=== PATIENT | female | born 1960 | race Caucasian/White ===

== ENCOUNTER 2019-12-23 10:24 | Emergency (ER) | payer BC ==
--- NOTE | 2019-12-23 10:52 | ED Physician Documentation ---
PD HPI Fall - Stated complaint Stated Complaint: ABD PX - Chief complaint Chief Complaint: General - History obtained from History obtained from: Patient - History of Present Illness Mechanism of injury: Tripped, Lost balance Fall distance: Standing position Where injury occurred: Home Timing - onset: How many weeks ago (1) Injury(ies) location: Abdomen, Left Lower Extremity (anterolateral thigh). No: Head, Neck, Chest, Back Associated symptoms: Abdominal distension (She is having swelling and tenderness locally in the left mid to upper abdomen with a localized lump and significant bruising through most of the abdominal wall down to the inguinal crease. She has a separate bruising in the left anterolateral thigh. She is continue with pain in the anterior abdomen to palpation and with movement. She does feel a fullness of her abdomen. She denies any pain in her head neck or chest.). No: LOC, AMS, Weakness, Paresthesias Worsens with: Movement, Palpation Contributing factors: No: Anticoagulated, Intoxicated Similar symptoms before: Has not had sx before Review of Systems Constitutional: denies: Fever, Chills Nose: denies: Rhinorrhea / runny nose, Congestion Throat: denies: Sore throat Respiratory: denies: Cough GI: reports: Abdominal Pain, Constipation (mild but still having some stool output.). denies: Nausea, Vomiting, Diarrhea Skin: denies: Rash, Lesions, Abrasion (s), Laceration (s) Neurologic: denies: Focal weakness, Numbness, Altered mental status, Headache, Head injury PD PAST MEDICAL HISTORY - Past Medical History Cardiovascular: None Respiratory: None Neuro: None Endocrine/Autoimmune: None Musculoskeletal: Other - Past Surgical History Past Surgical History: Yes Ortho: Shoulder arthroplasty - Present Medications Home Medications: Ambulatory Orders Medication Instructions Recorded Confirmed Docusate Sodium 100 mg PO DAILY #30 capsule 12/23/19 Hydrocodone/Acetaminophen 1 each PO TID PRN #20 tablet 12/23/19 [Hydrocodon-Acetaminophen 5-325] Naproxen 375 mg PO BID #20 tablet 12/23/19 - Allergies Allergies/Adverse Reactions: Allergies Allergy/AdvReac Type Severity Reaction Status Date / Time Penicillins Allergy Unknown Verified 12/23/19 10:43 - Social History Does the pt smoke?: No Smoking Status: Never smoker - Immunizations Immunizations are current?: Yes PD ED PE NORMAL - Vitals Vital signs reviewed: Yes - General General: Alert and oriented X 3, Well developed/nourished, Other (She appears uncomfortable with abdominal palpation but otherwise resting appears comfortable) - HEENT HEENT: Atraumatic - Neck Neck: Supple, no meningeal sign, No adenopathy - Cardiac Cardiac: RRR, No murmur - Respiratory Respiratory: Clear bilaterally - Abdomen Abdomen: Normal bowel sounds, Soft, No organomegaly, Other (She has a old midline abdominal scar noted. There is a localized area of focal tenderness and swelling with firmness to the left area above the umbilical level. It is locally tender and hard to palpate due to the discomfort. There is significant bruising around it and inferior and lateral to it. The rest of the abdominal wall is slightly tender. The upper abdomen is nontender. There is no CVA tenderness. The left anterior thigh has some bruising with some mild muscle tenderness but good range of motion and no bony area deformities. Hip and knee are with good range of motion.) - Back Back: No CVA TTP, No spinal TTP - Derm Derm: Normal color, Warm and dry - Neuro Neuro: Alert and oriented X 3, No motor deficit, No sensory deficit, Normal speech Results - Vitals Vitals: Vital Signs - 24 hr 12/23/19 12/23/19 12/23/19 10:37 11:05 11:39 Temperature 36.9 C Heart Rate 94 88 82 Respiratory 22 16 19 Rate Blood Pressure 181/108 H 154/97 H 139/96 H O2 Saturation 98 91 L 98 12/23/19 13:56 Temperature 36.6 C Heart Rate 79 Respiratory 18 Rate Blood Pressure 139/95 H O2 Saturation 97 Oxygen O2 Source Room air - Labs Labs: Laboratory Tests 12/23/19 12/23/19 10:45 10:45 WBC 11.9 H RBC 4.24 Hgb 15.1 Hct 44.4 MCV 104.7 H MCH 35.6 H MCHC 34.0 RDW 13.1 Plt Count 270 MPV 10.8 Neut # (Auto) 7.0 H Lymph # (Auto) 3.3 [place] # (Auto) 1.2 H Eos # (Auto) 0.2 Baso # (Auto) 0.1 Absolute Nucleated RBC 0.00 Nucleated RBC % 0.0 Sodium 137 Potassium 4.1 Chloride 103 Carbon Dioxide 23 Anion Gap 11.0 BUN 10 Creatinine 0.8 Estimated GFR (MDRD) 74 L Glucose 125 H Calcium 8.9 Total Bilirubin 0.7 AST 43 H ALT 43 Alkaline Phosphatase 66 Total Protein 7.8 Albumin 4.3 Globulin 3.5 Albumin/Globulin Ratio 1.2 Lipase 38 - Rads (name of study) abd CT Radiology: Prelim report reviewed (Localized inflammation and density in the left anterior abdominal wall consistent with hematoma. No signs of intra- abdominal free fluid or injury. No hernia noted.), See rad report PD MEDICAL DECISION MAKING - ED course Complexity details: reviewed results, re-evaluated patient, considered differential (The patient did have a fall and injury to the abdominal wall with a localized area of tenderness and swelling likely consistent with a hematoma. Is just adjacent to an old midline scar so a incarcerated hernia would be a concern as well. CT scan should help to differentiate as well as exclude any intra-abdominal organ injury or free fluid. She does not have acute peritoneal findings on exam.), d/w patient Departure - Departure Disposition: 01 Home, Self Care Clinical Impression: Accidental fall Qualifiers: Encounter type: initial encounter Qualified Code(s): W19.XXXA - Unspecified fall, initial encounter Traumatic hematoma of abdominal wall Qualifiers: Encounter type: initial encounter Qualified Code(s): S30.1XXA - Contusion of abdominal wall, initial encounter Condition: Stable Record reviewed to determine appropriate education?: Yes Instructions: ED Hematoma Follow-Up: Mindy Cervantes PA-C [Primary Care Provider] - Prescriptions: Docusate Sodium 100 mg PO DAILY #30 capsule Hydrocodone/Acetaminophen [Hydrocodon-Acetaminophen 5-325] 1 each PO TID PRN #20 tablet PRN Reason: pain Naproxen 375 mg PO BID #20 tablet Comments: Your CT scan showed just the hematoma and the abdominal wall. No signs of hernia or internal organ injury or internal bleeding. Your blood count is good. Warm moist towels to the area of the lump 2-3 times a day to help promote absorption of the hematoma. Recheck with your primary if not improved well over the next couple of weeks or alternatively could follow-up with surgery in their office to discuss whether to have it evacuated to reduce discomfort. This would be uncommon to need that it is usually gets better on its own. Meanwhile use some anti-inflammatories twice daily of naproxen and add Tylenol 3-4 times a day or hydrocodone if needed for worse pain. Uses daily stool softener so you do not get constipated with the medications. Recheck if increasing size of the swelling, warmth fever or redness to it or other concerns.
[2019-12-23 11:01] LABS: BASOPHILS # (AUTO) 0.1 10^3/uL (0.0-0.1); BASOPHILS % (AUTO) 1.1 %; EOSINOPHILS # (AUTO) 0.2 10^3/uL (0.0-0.7); EOSINOPHILS % (AUTO) 1.6 %; HGB - HEMOGLOBIN 15.1 g/dL (12.0-16.0); LYMPHOCYTES # (AUTO) 3.3 10^3/uL (1.5-3.5); LYMPHOCYTES % (AUTO) 27.5 %; MEAN CORPUSCULAR HEMOGLOBIN 35.6 pg (27.0-31.0); MEAN CORPUSCULAR VOLUME 104.7 fL (81.0-99.0); MEAN PLATELET VOLUME 10.8 fL (7.9-10.8); MONOCYTES # (AUTO) 1.2 10^3/uL (0.0-1.0); NEUTROPHILS % (AUTO) 59.1 %; PLT - PLATELET COUNT 270 10^3/uL (130-450); RED BLOOD COUNT 4.24 10^6/uL (4.20-5.40); RED CELL DISTRIBUTION WIDTH 13.1 % (12.0-15.0); WHITE BLOOD COUNT 11.9 x10^3/uL (4.8-10.8)
[2019-12-23 11:13] LABS: ALBUMIN 4.3 g/dL (3.2-5.5); ALBUMIN/GLOBULIN RATIO 1.2 (1.0-2.2); BILIRUBIN,TOTAL 0.7 mg/dL (0.2-1.0); CALCIUM 8.9 mg/dL (8.5-10.3); CREATININE 0.8 mg/dL (0.4-1.0); TOTAL PROTEIN 7.8 g/dL (6.7-8.2)
[2019-12-23] MEDS ORDERED: MORPHINE 10 MG/ML VIAL IVP STA (11:15)
[2019-12-23] MEDS ORDERED: KETOROLAC 30 MG/ML VIAL IVP STA (11:15)
[2019-12-23] MEDS ORDERED: SODIUM CHLORIDE 0.9% 1,000 ML IV ONE (11:20)
[2019-12-23] MEDS ORDERED: IOVERSOL 320 100 ML VIAL IVP ONE ×3 (11:38→14:44)
--- NOTE | 2019-12-23 12:45 | CT Report ---
Reason: fall with left/anterior abd pain/bruise/lump Procedure Date: 12/23/2019 Accession Number: [id number] / [id number] Procedure: CT - Abdomen/Pelvis W CPT Code: Final Report FULL RESULT: EXAM: CT ABDOMEN AND PELVIS EXAM DATE: 12/23/2019 11:52 AM. CLINICAL HISTORY: Fall with left/anterior abd pain/bruise/lump. COMPARISONS: None. TECHNIQUE: Routine helical CT imaging was performed through the abdomen and pelvis. IV contrast: OPTIRAY 320. Enteric contrast: No. Reconstructions: Coronal and sagittal. In accordance with CT protocol optimization, one or more of the following dose reduction techniques were utilized for this exam: automated exposure control, adjustment of mA and/or KV based on patient size, or use of iterative reconstructive technique. FINDINGS: Lung Bases: The lung bases are without evidence of a mass or infiltrate. Solid organs: There is diffuse hepatic steatosis. No enhancing mass is identified. The spleen is without evidence of a mass or cyst. The pancreas is without evidence of a mass. The adrenal glands demonstrate a normal appearance. The kidneys are without evidence of a mass or hydronephrosis. There is no hydroureter. Peritoneal Cavity/Bowel: The appendix is not clearly identified. There is no CT evidence of acute appendicitis. There are no dilated loops of bowel to suggest the presence of an obstruction. A few scattered sigmoid diverticuli are noted. There is no evidence of diverticulitis. Pelvic Organs: No mass or cyst is seen within the pelvis. There is no periaortic or pelvic lymphadenopathy. Vasculature: There is atherosclerosis of the aorta and iliac arteries. There is no evidence of an abdominal aortic aneurysm. Bones: Degenerative changes of the lumbar spine are noted. Other: There is only in the anterior abdominal wall communicating with the rectus abdominis muscles. It measures approximately 3.8 x 4.7 x 5.2 cm (image 40 of series 3 image 24 of series 6). This most likely represents a hematoma. IMPRESSION: Probable hematoma in the left anterior abdominal wall. If the lesion does not decrease in size over time, repeat imaging may be beneficial. Diffuse hepatic steatosis. Atherosclerosis of the aorta and iliac arteries. [facility]
[2019-12-23] MEDS ORDERED: HYDROmorphone 1 MG/ML CARPUJECT IVP STA (13:36)
[2019-12-23 13:57] VITALS: BP 139/95
== END 2019-12-23 14:16 | disposition home or self-care (01) ==
LOC: ED 10:24
DX: S30.1XXA Contusion of abdominal wall, initial encounter (principal); W19.XXXA Unspecified fall, initial encounter; Y93.89 Activity, other specified; Y92.009 Unspecified place in unspecified non-institutional (private) residence as the place of occurrence of the external cause
CPT/HCPCS: 36415; 74177; 80053; 83690; 85025; 96374; 96375; 99284; J1170; Q9967